=== PATIENT | male | born 1935 | race Caucasian/White ===

== ENCOUNTER 2019-03-30 22:31 | Inpatient (IN) | payer OTHER ==
[~2019-03-30] VITALS: Ht 175.2 cm; Wt 97.7 kg
--- NOTE | ~2019-03-30 | EKG ---
[place], [place] ELECTROCARDIOGRAM REPORT NAME: SOHAIL CURIEL UNIT #: [id number] ROOM: 511 DOCTOR: JOHANNAANY DRAFT REPORT BIRTHDATE: [birth year] [facility] [place] Test Date: 2019-03-30 Test Time: 23:42:04 Pat Name: SOHAIL CURIEL Department: Room: 511 Gender: M Utilities Manager: Margaret Quan : 1935 Requested By: ISAURO JOHNSON Order Number: [id number] Reading MD: Genaro De Jesus Measurements Intervals [place] Rate: 61 P: 35 RI: 230 QRS: -4 QRSD: 107 T: 28 QT: 432 QTc: 435 Interpretive Statements Sinus rhythm Prolonged RI interval No previous ECG available for comparison Electronically Signed On 03-31-2019 9:07:30 PDT by Genaro De Jesus CM:EKGRPT:ELECTROCARDIOGRAM REPORT [id number] ISAURO JOHNSON MD EPIPHANY DRAFT REPORT ISAURO JOHNSON MD
--- NOTE | ~2019-03-30 | CON ---
[place], [place] REPORT OF CONSULTATION NAME: [facility]AIL CURIEL [id number] UNIT #: [id number] ROOM: 511 DOCTOR: JARRELL RHOADES MD BIRTHDATE: [birth year] DOS: 03/31/2019 REASON FOR CONSULTATION: Chronic kidney disease. HISTORY OF PRESENT ILLNESS: This is an 83-year-old male. He gives a history of known chronic kidney disease, hypertension, BPH, and diabetes. Apparently, he apparently came to the hospital with complaints of worsening edema. He states that it seemed worse than what he had seen him from a week ago. His left leg was more swollen than the right one. He also had noted blister there that was not there before. Apparently, he had been on diuretics, but his grain cleaner took him off diuretics completely. He denies shortness of breath, chest pain, nausea, vomiting, fevers or chills. He was admitted for further care. The patient tells me he has a grain cleaner he has seen for several years in [place]. He follows with [facility]. As mentioned, he had been on diuretics, but this was held due to concerns about his renal function from what I understand. His baseline creatinine looks to be in the 2s with fluctuations looking at the records. He tells me his GFR has been around 30. ALLERGIES: No known drug allergies. HOME MEDICATIONS: Included vitamin D, Neurontin, oxycodone, Coumadin, vitamin B complex, previous Lasix. PAST MEDICAL HISTORY: 1. Chronic kidney disease as stated above. 2. Benign prostatic hypertrophy. 3. Anemia. 4. Diabetes mellitus. 5. Edema. 6. Bladder cancer. 7. Lichen planus. 8. Thrombocytopenia. 9. Cholecystectomy. 10. Cystoscopy. 11. History of excision. 12. IVC filter. FAMILY HISTORY: No reported history of chronic kidney disease, otherwise noncontributory. SOCIAL HISTORY: . Smokes a pipe. No tobacco or illicit drugs. REVIEW OF SYSTEMS: As per HPI, otherwise a 10-point review of systems was reviewed and was negative. PHYSICAL EXAMINATION: VITAL SIGNS: Temperature afebrile, pulse 55, respiratory rate 20, blood pressure 153/67. GENERAL: He is awake and alert, comfortable, in no acute distress. HEENT: Shows no JVD. Sclerae are anicteric. Mucous membranes are moist. [place], [place] REPORT OF CONSULTATION NAME: SOHAIL CURIEL UNIT #: [id number] ROOM: 511 DOCTOR: JARRELL RHOADES MD BIRTHDATE: [birth year] Pharynx clear. NECK: Supple. Trachea is midline. There is no neck lymphadenopathy or thyromegaly. LUNGS: Diminished breath sounds with no wheeze. There is no tactile fremitus. He is not using accessory muscles of respiration. HEART: S1, S2. No rub, thrill or gallop. ABDOMEN: Soft, nontender. There is no organomegaly or rigidity, rebound or guarding. There is no CVA tenderness. EXTREMITIES: He had 1-2+ edema bilaterally. Left lower extremity slightly more edema with a water blister noted. Distal pulses were present. SKIN: Venous stasis changes noted to the lower extremities. There is no overt rash, petechia or purpura. Skin temperature is warm. NEUROLOGIC: He was awake, alert and following commands. Cranial nerves intact. LABORATORY DATA: Hemoglobin 12.2, white count of 6.2, platelets 132, BUN 37, creatinine 2.25, glucose 120. Sodium 141, potassium 4.1, CO2 of 22, calcium 8.3, phosphorus 3.2, magnesium 2.0. IMPRESSION: 1. 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 The patient's baseline creatinine seems to be in the low 2s. He likely has underlying diabetes and diabetic nephropathy and nephrosclerosis. 2. Edema, which seems chronic. Likely, he may have worsening edema due to recent discontinuation of diuretics. 3. Hypertension. 4. Diabetes mellitus. 5. Mild anemia. PLAN: 1. Continue ongoing supportive care. Diuretics can continue as felt needed. He likely will require diuretics to be resumed as an outpatient. 2. The patient did have a urinalysis. There is no evidence of protein to suggest nephrotic syndrome. 3. Dose medication for current creatinine clearance. 4. Replace electrolytes as needed. 5. Await further plans. Thank you for this consultation. We will follow with you. [place], [place] REPORT OF CONSULTATION NAME: SOHAIL CURIEL UNIT #: [id number] ROOM: 511 DOCTOR: JARRELL RHOADES MD BIRTHDATE: [birth year] JARRELL RHOADES MD CM:CONSTR:REPORT OF CONSULTATION [id number] 03/31/19 2339 interface
[~2019-03-30 22:31] MED LIST: AMARYL2 MG PO; AMARYL4 MG PO; B COMPLEX1 EACH PO; COREG3.125 MG PO; COUMADIN3 M1 PO; DAYPRO600 M1 PO; ENOXAPARIN100 MG/ML SC; GLIPIZIDE ER5 MG PO; HUMALOG100 U/ML SC; JANTOVEN6 M1 PO; LANTUS100 U/ML SC; LIDODERM 5% PATC1 EA T; LISINOPRIL10 MG PO; LISINOPRIL5 MG PO; Lipitor PO; MAPAP325 MG PO; Mycostatin Powd15 GM T; NEURONTIN300 MG PO; OXYCODONE5 M1 PO; PROTONIX TR40 MG PO; VITAMIN D1000 IU PO
[2019-03-30 22:32] VITALS: BP 165/60
[2019-03-30 23:48] LABS: BASO % 0.6 % (0.0-1.0); EOS # 0.5 10*3/uL (0.0-0.4); EOS % 7.3 % (1.0-4.0); HEMATOCRIT 37.1 % (42.0-52.0); HEMOGLOBIN 12.3 g/dl (14.0-18.0); LYMPH # 1.7 10*3/uL (1.3-4.4); LYMPH % 24.4 % (27.0-41.0); MEAN CELL VOLUME 94.6 fl (80.0-94.0); MEAN CORPUSCULAR HGB 31.4 pg (27.0-31.0); MEAN CORPUSCULAR HGB CONC 33.2 g/dl (33.0-37.0); MEAN PLATELET VOLUME 9.6 fl (9.6-12.3); MONO # 0.6 10*3/uL (0.1-1.0); MONO % 7.8 % (3.0-9.0); NEUT # 4.2 10*3/uL (2.3-7.9); NEUT % 59.6 % (47.0-73.0); PLATELET COUNT AUTOMATED 123 10*3/uL (130-400); RED BLOOD COUNT 3.92 10*6/uL (4.50-5.90); RED CELL DISTRI WIDTH 14.6 % (0-14.5); WHITE BLOOD COUNT 7.1 10*3/uL (4.8-10.8)
[2019-03-30 23:59] LABS: ACT PARTIAL THROMBO TIME 39.3 SECONDS (20.0-32.1); INTERNATIONAL NORM RATIO 2.8 (2.0-3.5)
[2019-03-31 00:06] LABS: ALKALINE PHOSPHATASE 79 U/L (45-117); BUN 38 mg/dl (7-24); CHLORIDE 113 mmol/L (98-107); CREATININE 2.32 mg/dL (0.70-1.30); LIPASE 155 U/L (73-393); POTASSIUM 4.1 mmol/L (3.5-5.1); SGOT/AST 19 IU/L (3-35); SGPT/ALT 27 U/L (12-78); SODIUM 140 mmol/L (136-145); TOTAL PROTEIN 6.6 gm/dL (6.4-8.2); TROPONIN I < 0.015 ng/ml (<0.045)
[2019-03-31 01:09] LABS: BILIRUBIN NEGATIVE (NEGATIVE); BLOOD NEGATIVE (NEGATIVE); CLARITY CLEAR (CLEAR); COLOR YELLOW (YELLOW); GLUCOSE TRACE (NEGATIVE); KETONE NEGATIVE (NEGATIVE); LEUKO ESTERASE NEGATIVE (NEGATIVE); NITRITE NEGATIVE (NEGATIVE); SPECIFIC GRAVITY <= 1.005 (1.005-1.030); UROBILINOGEN 0.2 E.U./dl (0.2-1.0)
[2019-03-31 02:52] VITALS: BP 156/57
[2019-03-31 06:41] LABS: BASO # 0.1 10*3/uL (0.0-0.1); EOS # 0.6 10*3/uL (0.0-0.4); EOS % 9.4 % (1.0-4.0); HEMATOCRIT 37.1 % (42.0-52.0); HEMOGLOBIN 12.2 g/dl (14.0-18.0); LYMPH # 1.7 10*3/uL (1.3-4.4); LYMPH % 27.4 % (27.0-41.0); MEAN CELL VOLUME 94.4 fl (80.0-94.0); MEAN CORPUSCULAR HGB CONC 32.9 g/dl (33.0-37.0); MEAN PLATELET VOLUME 10.3 fl (9.6-12.3); MONO # 0.5 10*3/uL (0.1-1.0); MONO % 8.4 % (3.0-9.0); NEUT # 3.3 10*3/uL (2.3-7.9); NEUT % 53.5 % (47.0-73.0); PLATELET COUNT AUTOMATED 132 10*3/uL (130-400); RED BLOOD COUNT 3.93 10*6/uL (4.50-5.90); RED CELL DISTRI WIDTH 14.6 % (0-14.5); WHITE BLOOD COUNT 6.2 10*3/uL (4.8-10.8)
[2019-03-31 07:00] LABS: POTASSIUM 4.1 mmol/L (3.5-5.1)
[2019-03-31 07:12] LABS: ALBUMIN 2.9 gm/dl (3.1-4.5); CREATININE 2.25 mg/dL (0.70-1.30); PHOSPHOROUS 3.2 mg/dL (2.5-4.9); THYROID STIM HORMONE (HS) 3.18 uIU/ml (0.358-4.75); TOTAL PROTEIN 6.4 gm/dL (6.4-8.2)
[2019-03-31 08:00] VITALS: BP 126/56
[2019-03-31 08:37] LABS: VITAMIN D, 25-HYDROXY 44.4 ng/mL (30-100)
[2019-03-31] MEDS ORDERED: AMLODIPINE BESYL5 MG PO (11:09)
[2019-03-31] MEDS ORDERED: JANTOVEN1 MG PO (11:10)
[2019-03-31] MEDS ORDERED: TRESIBA FL100 UNIT/1 SQ (11:11)
[2019-03-31] MEDS ORDERED: FLOMAX0.4 MG PO (11:12)
[2019-03-31] MEDS ORDERED: FOLTANX TABLET1 EACH PO (11:13)
[2019-03-31] MEDS ORDERED: SODIUM BICARBO650 MG PO (11:13)
[2019-03-31] MEDS ORDERED: HYDROCHLOROTHIA25 M1 PO (11:14)
[2019-03-31] MEDS ORDERED: GLIMEPIRIDE4 M1 PO (11:14)
[2019-03-31 12:00] VITALS: BP 153/67
[2019-03-31 16:00] VITALS: BP 138/76
[2019-03-31 20:00] VITALS: BP 125/52
[2019-04-01] VITALS: BP 123/50
[2019-04-01 06:25] LABS: BASO # 0.1 10*3/uL (0.0-0.1); BASO % 0.7 % (0.0-1.0); EOS # 0.5 10*3/uL (0.0-0.4); EOS % 7.5 % (1.0-4.0); HEMATOCRIT 38.1 % (42.0-52.0); HEMOGLOBIN 12.5 g/dl (14.0-18.0); LYMPH # 1.8 10*3/uL (1.3-4.4); LYMPH % 26.8 % (27.0-41.0); MEAN CELL VOLUME 94.8 fl (80.0-94.0); MEAN CORPUSCULAR HGB 31.1 pg (27.0-31.0); MEAN CORPUSCULAR HGB CONC 32.8 g/dl (33.0-37.0); MEAN PLATELET VOLUME 10.1 fl (9.6-12.3); MONO # 0.6 10*3/uL (0.1-1.0); MONO % 8.7 % (3.0-9.0); NEUT # 3.8 10*3/uL (2.3-7.9); NEUT % 56.2 % (47.0-73.0); PLATELET COUNT AUTOMATED 147 10*3/uL (130-400); RED BLOOD COUNT 4.02 10*6/uL (4.50-5.90); RED CELL DISTRI WIDTH 14.9 % (0-14.5); WHITE BLOOD COUNT 6.8 10*3/uL (4.8-10.8)
[2019-04-01 06:40] LABS: CREATININE 2.59 mg/dL (0.70-1.30); POTASSIUM 4.2 mmol/L (3.5-5.1)
[2019-04-01 08:00] VITALS: BP 134/47
[2019-04-01 12:00] VITALS: BP 111/58
[2019-04-01 14:00] VITALS: BP 111/58
[2019-04-01] MEDS ORDERED: LASIX20 MG PO (16:46)
== END 2019-04-01 17:18 | disposition home or self-care (01) | DRG 602 ==
LOC: ED 22:31 → 5E 03-31 02:08 → EDHOLD 03-31 02:08 → 5E 03-31 02:17
PROVIDERS: Emergency Medicine Emergency Medical Services; Student in an Organized Health Care Education/Training Program; ADMIT Internal Medicine
DX: L03.116 Cellulitis of left lower limb (principal); N17.0 Acute kidney failure with tubular necrosis; E44.0 Moderate protein-calorie malnutrition; N18.4 Chronic kidney disease, stage 4 (severe); J98.11 Atelectasis; J90 Pleural effusion, not elsewhere classified; N40.0 Benign prostatic hyperplasia without lower urinary tract symptoms; L43.9 Lichen planus, unspecified; I12.9 Hypertensive chronic kidney disease with stage 1 through stage 4 chronic kidney disease, or unspecified chronic kidney disease; E11.22 Type 2 diabetes mellitus with diabetic chronic kidney disease; E11.65 Type 2 diabetes mellitus with hyperglycemia; E87.8 Other disorders of electrolyte and fluid balance, not elsewhere classified; D64.9 Anemia, unspecified; T45.515A Adverse effect of anticoagulants, initial encounter; D69.6 Thrombocytopenia, unspecified; D72.810 Lymphocytopenia; E66.9 Obesity, unspecified; Z85.51 Personal history of malignant neoplasm of bladder; Z90.49 Acquired absence of other specified parts of digestive tract; Z86.718 Personal history of other venous thrombosis and embolism; Z82.5 Family history of asthma and other chronic lower respiratory diseases; Z82.0 Family history of epilepsy and other diseases of the nervous system; Y92.89 Other specified places as the place of occurrence of the external cause; Z79.899 Other long term (current) drug therapy; Z79.4 Long term (current) use of insulin; Z68.32 Body mass index [BMI] 32.0-32.9, adult

== ENCOUNTER 2019-04-17 15:35 | Emergency (ER) | payer OTHER ==
[~2019-04-17] VITALS: Ht 172.7 cm; Wt 97.5 kg
[~2019-04-17 15:35] MED LIST changes: +AMLODIPINE BESYL5 MG PO; +FLOMAX0.4 MG PO; +FOLTANX TABLET1 EACH PO; +GLIMEPIRIDE4 M1 PO; +HYDROCHLOROTHIA25 M1 PO; +JANTOVEN1 MG PO; +LASIX20 MG PO; +SODIUM BICARBO650 MG PO; +TRESIBA FL100 UNIT/1 SQ
[2019-04-17 15:36] VITALS: BP 146/64
[2019-04-17 16:13] LABS: BASO # 0.1 10*3/uL (0.0-0.1); BASO % 0.9 % (0.0-1.0); EOS # 0.5 10*3/uL (0.0-0.4); HEMATOCRIT 35.2 % (42.0-52.0); HEMOGLOBIN 11.8 g/dl (14.0-18.0); LYMPH # 1.7 10*3/uL (1.3-4.4); LYMPH % 24.9 % (27.0-41.0); MEAN CELL VOLUME 94.6 fl (80.0-94.0); MEAN CORPUSCULAR HGB 31.7 pg (27.0-31.0); MEAN CORPUSCULAR HGB CONC 33.5 g/dl (33.0-37.0); MEAN PLATELET VOLUME 10.1 fl (9.6-12.3); MONO # 0.6 10*3/uL (0.1-1.0); MONO % 8.3 % (3.0-9.0); NEUT # 4.1 10*3/uL (2.3-7.9); NEUT % 58.6 % (47.0-73.0); PLATELET COUNT AUTOMATED 119 10*3/uL (130-400); RED BLOOD COUNT 3.72 10*6/uL (4.50-5.90); RED CELL DISTRI WIDTH 14.9 % (0-14.5)
[2019-04-17 16:30] LABS: ACT PARTIAL THROMBO TIME 42.1 SECONDS (20.0-32.1); ALBUMIN 3.1 gm/dl (3.1-4.5); CREATININE 2.47 mg/dL (0.70-1.30); INTERNATIONAL NORM RATIO 3.4 (2.0-3.5); POTASSIUM 4.5 mmol/L (3.5-5.1); TOTAL PROTEIN 6.6 gm/dL (6.4-8.2)
[2019-04-17] MEDS ORDERED: VIBRAMYCIN100 MG PO (17:08)
== END 2019-04-17 17:13 | disposition home or self-care (01) ==
LOC: ED 15:35
PROVIDERS: Physician Assistant
DX: L03.116 Cellulitis of left lower limb (principal); E11.9 Type 2 diabetes mellitus without complications; Z90.49 Acquired absence of other specified parts of digestive tract; Z79.899 Other long term (current) drug therapy; Z79.01 Long term (current) use of anticoagulants; Z79.4 Long term (current) use of insulin; Z86.718 Personal history of other venous thrombosis and embolism

== ENCOUNTER → 2020-04-17 | Outpatient (CLI) | payer OTHER ==
[~2020-04-17] MED LIST changes: +VIBRAMYCIN100 MG PO
[2020-04-17 14:29] LABS: BASO % 0.5 % (0.0-1.0); EOS # 0.4 10*3/uL (0.0-0.4); EOS % 4.7 % (1.0-4.0); HEMATOCRIT 39.6 % (42.0-52.0); LYMPH # 2.1 10*3/uL (1.3-4.4); LYMPH % 26.1 % (27.0-41.0); MEAN CELL VOLUME 91.2 fl (80.0-94.0); MEAN CORPUSCULAR HGB CONC 32.8 g/dl (33.0-37.0); MEAN PLATELET VOLUME 10.2 fl (9.6-12.3); MONO # 0.8 10*3/uL (0.1-1.0); MONO % 10.2 % (3.0-9.0); NEUT # 4.7 10*3/uL (2.3-7.9); NEUT % 58.1 % (47.0-73.0); PLATELET COUNT AUTOMATED 121 10*3/uL (130-400); RED BLOOD COUNT 4.34 10*6/uL (4.50-5.90); RED CELL DISTRI WIDTH 14.5 % (0-14.5); WHITE BLOOD COUNT 8.1 10*3/uL (4.8-10.8)
== END | disposition home or self-care (01) ==
LOC: LAB 08:18 → COVID19 08:18
PROVIDERS: Family Medicine
DX: R05 Cough (principal); R50.9 Fever, unspecified; Z20.828 Contact with and (suspected) exposure to other viral communicable diseases

== ENCOUNTER → 2020-09-09 | Outpatient (CLI) | payer OTHER | END | disposition home or self-care (01) | LOC: COVID19 13:56 | PROVIDERS: ATTEND Physician Assistant | DX: U07.1 COVID-19 (principal) ==

== ENCOUNTER 2020-11-21 08:12 | Emergency (ER) | payer OTHER ==
[~2020-11-21] VITALS: Wt 88.5 kg
[2020-11-21 09:39] VITALS: BP 133/60
== END 2020-11-21 11:58 | disposition home or self-care (01) ==
LOC: ED 08:12
DX: S01.81XA Laceration without foreign body of other part of head, initial encounter (principal); I10 Essential (primary) hypertension; E11.9 Type 2 diabetes mellitus without complications; Z95.0 Presence of cardiac pacemaker; Z79.899 Other long term (current) drug therapy; Z79.01 Long term (current) use of anticoagulants; Z90.49 Acquired absence of other specified parts of digestive tract; Z98.890 Other specified postprocedural states; Z79.4 Long term (current) use of insulin; Z87.891 Personal history of nicotine dependence; W19.XXXA Unspecified fall, initial encounter; Y93.89 Activity, other specified; Y92.89 Other specified places as the place of occurrence of the external cause; Y99.8 Other external cause status

== ENCOUNTER → 2021-01-28 | Outpatient (CLI) | payer OTHER | LOC: WOUNDCARE 01:40 | PROVIDERS: ATTEND Nurse Practitioner | DX: S41.111D Laceration without foreign body of right upper arm, subsequent encounter (principal); S40.811D Abrasion of right upper arm, subsequent encounter; E11.22 Type 2 diabetes mellitus with diabetic chronic kidney disease; N18.9 Chronic kidney disease, unspecified; N40.0 Benign prostatic hyperplasia without lower urinary tract symptoms; F17.200 Nicotine dependence, unspecified, uncomplicated; Z85.51 Personal history of malignant neoplasm of bladder; X58.XXXD Exposure to other specified factors, subsequent encounter ==

== ENCOUNTER → 2021-02-03 | Outpatient (CLI) | payer OTHER | LOC: WOUNDCARE 02:23 | PROVIDERS: ATTEND Nurse Practitioner | DX: S41.111D Laceration without foreign body of right upper arm, subsequent encounter (principal); E11.22 Type 2 diabetes mellitus with diabetic chronic kidney disease; N18.9 Chronic kidney disease, unspecified; N40.0 Benign prostatic hyperplasia without lower urinary tract symptoms; F17.200 Nicotine dependence, unspecified, uncomplicated; Z85.51 Personal history of malignant neoplasm of bladder; X58.XXXD Exposure to other specified factors, subsequent encounter ==

== ENCOUNTER → 2022-09-01 | Outpatient (CLI) | payer OTHER | END | disposition home or self-care (01) | LOC: WOUNDCARE 09:58 | PROVIDERS: ATTEND Nurse Practitioner Family | DX: S81.802A Unspecified open wound, left lower leg, initial encounter (principal); E11.9 Type 2 diabetes mellitus without complications; N40.0 Benign prostatic hyperplasia without lower urinary tract symptoms; E11.22 Type 2 diabetes mellitus with diabetic chronic kidney disease; N18.9 Chronic kidney disease, unspecified; D69.6 Thrombocytopenia, unspecified; F17.200 Nicotine dependence, unspecified, uncomplicated; Z90.49 Acquired absence of other specified parts of digestive tract; Z86.718 Personal history of other venous thrombosis and embolism; X58.XXXA Exposure to other specified factors, initial encounter; Y93.89 Activity, other specified; Y92.89 Other specified places as the place of occurrence of the external cause; Y99.8 Other external cause status ==

== ENCOUNTER 2022-09-04 09:38 | Emergency (ER) | payer OTHER ==
[~2022-09-04] VITALS: Ht 175.2 cm; Wt 86.2 kg
[2022-09-04 09:45] VITALS: BP 149/54
[2022-09-04] MEDS ORDERED: BUMETANIDE1 MG PO (10:02)
[2022-09-04] MEDS ORDERED: VIBRA-TAB100 MG PO (11:48)
== END 2022-09-04 12:08 | disposition home or self-care (01) ==
LOC: ED 09:38
DX: L03.116 Cellulitis of left lower limb (principal)

== ENCOUNTER → 2022-09-08 | Outpatient (CLI) | payer OTHER ==
[~2022-09-08] MED LIST changes: +BUMETANIDE1 MG PO; +VIBRA-TAB100 MG PO
== END | disposition home or self-care (01) ==
LOC: WOUNDCARE 06:01
PROVIDERS: ATTEND Nurse Practitioner Family
DX: S81.802D Unspecified open wound, left lower leg, subsequent encounter (principal); N40.0 Benign prostatic hyperplasia without lower urinary tract symptoms; E11.22 Type 2 diabetes mellitus with diabetic chronic kidney disease; N18.9 Chronic kidney disease, unspecified; D69.6 Thrombocytopenia, unspecified; F17.200 Nicotine dependence, unspecified, uncomplicated; Z90.49 Acquired absence of other specified parts of digestive tract; Z86.718 Personal history of other venous thrombosis and embolism; X58.XXXD Exposure to other specified factors, subsequent encounter